=== PATIENT | female | born 1955 | race Caucasian/White ===

== ENCOUNTER 2018-05-01 16:59 | Outpatient (REF) | payer BC, SELFPAY ==
[2018-05-01 20:44] LABS: ALT 25 U/L (12-78); AST 21 U/L (15-37); Albumin 3.7 g/dL (3.4-5.0); Alkaline Phosphatase 90 U/L (46-116); Bilirubin, Direct 0.12 mg/dL (0.00-0.20); Bilirubin, Total 0.5 mg/dL (0.2-1.0)
[2018-05-01 22:25] LABS: Cholesterol 201 mg/dL (50-200); HDL Cholesterol 50 mg/dL (40-60); LDL CHOLESTEROL 134 mg/dL (<100); Triglyceride 78 mg/dL (30-150)
== END 2018-05-01 17:19 ==
LOC: NCHCN 16:59
PROVIDERS: PCP Nurse Practitioner Family; Visit Provider Nurse Practitioner Family
DX: E78.5 Hyperlipidemia, unspecified (principal); Z95.1 Presence of aortocoronary bypass graft; I25.10 Atherosclerotic heart disease of native coronary artery without angina pectoris; E66.9 Obesity, unspecified; R32 Unspecified urinary incontinence; G89.4 Chronic pain syndrome; M79.7 Fibromyalgia; F32.9 Major depressive disorder, single episode, unspecified
CPT/HCPCS: 80061; 80076; 83721; 87086

== ENCOUNTER 2018-05-16 15:24 | Outpatient (REF) | payer BC, SELFPAY ==
[2018-05-16 22:13] LABS: BUN 20 mg/dL (7-18); CREATININE 0.87 mg/dL (0.55-1.02)
== END 2018-05-16 15:44 ==
LOC: NCHCN 15:24
PROVIDERS: PCP Nurse Practitioner Family; Visit Provider Nurse Practitioner Family
DX: Z01.812 Encounter for preprocedural laboratory examination (principal); R69 Illness, unspecified
CPT/HCPCS: 84520; 82565

== ENCOUNTER 2018-08-01 10:53 | Outpatient (REF) | payer BC, SELFPAY ==
[2018-08-01 22:40] LABS: Cholesterol 176 mg/dL (50-200); HDL Cholesterol 49 mg/dL (40-60); LDL CHOLESTEROL 106 mg/dL (<100); Triglyceride 59 mg/dL (30-150)
== END 2018-08-01 11:13 ==
LOC: LBN 10:53
PROVIDERS: PCP Nurse Practitioner Family; Visit Provider Internal Medicine Cardiovascular Disease
DX: E78.5 Hyperlipidemia, unspecified (principal)
CPT/HCPCS: 80061; 83721

== ENCOUNTER 2020-11-19 17:40 | Outpatient (REF) | payer MEDICARE, BC, SELFPAY ==
--- OUTSIDE RECORDS SUMMARY | 2020-11-19 17:52 | XMS_ITS ---
:1955 Author Care Team Providers Name Role Phone LISETTE ARMIDA LUONG Primary Care Provider [phone] CRISTHIAN SRIVASTAVA MD Detention Sergeant [phone] [facility] OTHER [phone] Allergies Code Code System Name Reaction Severity Status Onset 036087 RxNorm Armodafinil ? ? Active ? DARVOCET-N ? ? Active ? 3640 RxNorm Doxycycline ? ? Active ? 09535 RxNorm Modafinil ? ? Active ? 2430 RxNorm Reglan ? ? Active ? Sulfa Respiratory ? Active ? (Sulfonamide Distress Antibiotics) 583791 RxNorm Xyrem ? ? Active ? Medications Name Status Start Date Stop Date ? ? aspirin 81 mg tablet,delayed release Active ? Not available Take 1 tablet every day by oral route. atorvastatin 20 mg tablet Active ? Not av ailable Take 1 tablet every day by oral route. Cymbalta 60 mg capsule,delayed release Completed ? 09/14/2018 Take 1 capsule every day by oral route. Fioricet with Codeine 50 mg-325 mg-40 mg-30 mg capsule Active 02/27/2018 Not available Take 1 capsule every 4 hours by oral route as needed. Fluticasone Propionate (Nasal) 50 mcg/DOSE inhaler Completed 11/19/2015 01/26/2017 Osborne 1 spray by intranasal route at bedtime for 60 days. Lyrica 100 mg capsule Active ? Not availa ble Take 1 capsule 3 times a day by oral route. Lyrica 50 mg capsule Completed ? 09/14/2018 1 tab daily meclizine 25 mg tablet Completed ? 8 TAKE 1 -2TABLET (25 MG) BY ORAL Q8H NEEDED methylphenidate 10 mg tablet Active ? Not available TAKE 1-2 tablets twice a day PRN MS Contin Active ? Not available 15mg Q6:30am; 1 tab Q noon; 2 Tab Qhs omeprazole 20 mg capsule,delayed release Active ? Not available Take 1 capsule every day by oral route. pravastatin 40 mg tablet Completed ? 018 Take 1 tablet every day by oral route. pravastatin 80 mg tablet Completed 10/12/2017 018 Take 1 tablet every day by oral route. Strattera 40 mg capsule Active ? Not avai lable Take 1 capsule every day by oral route. Topamax 50 mg tablet Active ? Not availab le TAKE 1TABLET BY ORAL ROUTE Qam, 1 tab Qpm Valtrex 500 mg tablet Active ? Not availa ble Take 1 tablet every day by oral route. vitamin B complex Active ? Not available 1 tab daily Vitamin D3 100 mcg (4,000 unit) capsule Active ? Not available Take 1 capsule every day by oral route. Wellbutrin XL 300 mg 24 hr tablet, extended release Completed ? 09/14/2018 Take 1 tablet every day by oral route. Zocor 40 mg tablet Completed ? 02/26/2018 Take 1 tablet every day by oral route in the evening. Zoloft Active ? Not available 75mg once a day Problems Name Status Onset Date Source ? Obstructive Sleep Apnea Syndrome Active 07/25/2008 History Triple Vessel Disease of the Heart Active 08/14/2015 ? Atypical Chest Pain Unknown 04/20/2017 ? Atypical Chest Pain Unknown 04/20/2017 ? History of Coronary Artery Bypass Active 05/15/2017 ? [place] Methicillin Resistant Staphylococcus Active ? ? Aureus Infection Genital Herpes Simplex Active ? ? Vitamin D Deficiency Active ? ? Hyperlipidemia Active ? ? Hypersomnia Active ? History Chronic Pain Active ? History Migraine Active ? ? Cataplexy and Narcolepsy Active ? 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 History Nasal Congestion Active ? History Osteoarthritis Active ? ? Low Back Pain Active ? ? Fibromyalgia Active ? ? Peripheral Neuritis Active ? ? Fracture of Bone Active ? ? Methicillin Resistant Staphylococcus Active ? History Aureus Carrier History of Depression Active ? ? Procedures Date Name Performed by ? 08/14/1992 Tubal Ligation Information not avai lable 09/14/2018 Polysomnogram Information not avai lable Results Lab Results None recorded. Past Encounters 06/15/2020 Hypersomnia Danitza Galvan NP: [address], [place] [address], Ph. 05/29/2019 Cataplexy and Narcolepsy Danitza Galvan NP: [address] [place] [address], Ph. Social History Tobacco Smoking Status Former Smoker Notes: 13, 1 p ack per week quit 1983 Vaccine List None recorded. Plan of Care Reminders Provider Appointments None ? ? recorded. Lab None ? ? recorded. Referral None ? ? recorded. Procedures None ? ? recorded. Surgeries None ? ? recorded. Imaging None ? ? recorded. Vitals 06/15/2020 12:30PM Office 30 Height Weight BMI Blood Pressure 168.91 cm 73.3 kg 25.7 kg/m2 130/59 mm[Hg] 05/29/2019 03:00PM Office 30 Height Weight BMI Blood Pressure 168.91 cm 72.57 kg 25.4 kg/m2 121/53 mm[Hg] 09/14/2018 12:30PM Office 30 Height Weight BMI Blood Pressure 168.91 cm 75.93 kg 26.6 kg/m2 140/62 mm[Hg] 02/26/2018 03:30PM Office 30 Height Weight BMI Blood Pressure 168.91 cm 81.33 kg 28.5 kg/m2 102/60 mm[Hg] 08/02/2017 Blood Pressure 124/90 mm[Hg] 01/27/2017 Height Weight 149.86 cm 87.12 kg 01/27/2017 Blood Pressure 118/60 mm[Hg] 09/13/2016 Height Weight 149.86 cm 89.1 kg 09/13/2016 Blood Pressure 110/60 mm[Hg] 05/03/2016 Blood Pressure 134/66 mm[Hg] 05/03/2016 Height Weight 149.86 cm 88 kg 11/19/2015 Height Weight 149.86 cm 94.35 kg 11/19/2015 Blood Pressure 120/78 mm[Hg] 04/14/2015 Height Weight 149.86 cm 94.35 kg 04/14/2015 Blood Pressure 106/62 mm[Hg] 09/30/2014 Blood Pressure 128/68 mm[Hg] 09/30/2014 Height Weight 149.86 cm 90.72 kg
[2020-11-19 20:48] LABS: Calculated LDL 35 mg/dL (<100); Cholesterol 103 mg/dL (<200); Glucose 88 mg/dL (74-106); HDL Cholesterol 57 mg/dL (40-60); Triglyceride 56 mg/dL (<150)
== END 2020-11-19 17:41 | disposition home or self-care (01) ==
LOC: NCHCN 17:40
PROVIDERS: PCP Nurse Practitioner Family; Visit Provider Nurse Practitioner Family
DX: E78.5 Hyperlipidemia, unspecified (principal); Z13.1 Encounter for screening for diabetes mellitus
CPT/HCPCS: 80061; 82947

== ENCOUNTER 2021-06-28 18:20 | Outpatient (REF) | payer MEDICARE, BC, SELFPAY ==
[2021-06-28 21:17] LABS: HCT 37.8 % (36.0-46.0); HGB 12.2 g/dL (11.2-15.7); MCH 29.3 pg (27.0-33.0); MCHC 32.3 % (32.0-36.0); MCV 90.9 fL (80-95); MPV 11.5 fL (8.0-11.0); Platelet Count 213 10^3/uL (130-400); RBC 4.16 10^6/uL (3.93-5.22); RDW 12.7 % (11.7-14.6); RDW-SD 41.8 fL; WBC 6.26 10^3/uL (4.4-10.8)
[2021-06-28 22:10] LABS: ALT 24 U/L (14-59); AST 24 U/L (15-37); Albumin 3.6 g/dL (3.4-5.0); Alkaline Phosphatase 75 U/L (46-116); Anion Gap 11.3 mmol/L (3-11); BUN 11 mg/dL (7-18); Bilirubin, Total 0.4 mg/dL (0.2-1.0); CO2 23.7 mmol/L (21.0-32.0); CREATININE 0.8 mg/dL (0.55-1.02); Calcium 8.4 mg/dL (8.5-10.1); Chloride 106 mmol/L (98-107); Glucose 133 mg/dL (74-106); Potassium 3.9 mmol/L (3.5-5.1); Sodium 141 mmol/L (136-145); Total Protein 6.4 g/dL (6.4-8.2); Vitamin B12 973 pg/mL (193-986)
== END 2021-06-28 18:21 | disposition home or self-care (01) ==
LOC: NCHCN 18:20
PROVIDERS: PCP Nurse Practitioner Family; Visit Provider Nurse Practitioner Family
DX: R53.83 Other fatigue (principal); F32.1 Major depressive disorder, single episode, moderate; G89.4 Chronic pain syndrome
CPT/HCPCS: 80053; 85027; 82607

== ENCOUNTER 2022-04-13 21:46 | Outpatient (REF) | payer MEDICARE, BC, SELFPAY ==
[2022-04-13 21:16] LABS: Absolute Basophil Count 0.07 10^3/uL (0.0-0.2); Absolute Lymphocyte Count 0.98 10^3/uL (1.2-3.4); Absolute Monocyte Count 0.33 10^3/uL (0.1-0.8); Absolute Neutrophil Count 3.52 10^3/uL (1.2-6.7); Basophils % 1.4; Eosinophils % 3.9; HCT 38.6 % (36.0-46.0); HGB 12.6 g/dL (11.2-15.7); Lymphocytes % 19.2; MCHC 32.6 % (32.0-36.0); MCV 89 fL (80-95); MPV 12.5 fL (8.0-11.0); Monocytes % 6.5; Platelet Count 196 10^3/uL (130-400); RBC 4.34 10^6/uL (3.93-5.22); RDW 13.2 % (11.7-14.6); RDW-SD 43.8 fL
[2022-04-13 21:37] LABS: TSH 0.67 uIU/mL (0.36-3.74)
== END 2022-04-13 21:47 | disposition home or self-care (01) ==
LOC: NCHCN 21:46
PROVIDERS: PCP Nurse Practitioner Family; Visit Provider Family Medicine
DX: R53.83 Other fatigue (principal); E55.9 Vitamin D deficiency, unspecified
CPT/HCPCS: 82306; 84443; 85025

== ENCOUNTER 2022-06-20 18:01 | Outpatient (REF) | payer MEDICARE, BC, SELFPAY ==
[2022-06-22 11:15] LABS: Lyme Ab w Rflx to Lyme Confirm Negative (Negative)
[2022-06-24 00:30] LABS: Anaplasma phagocytophilum Negative (Negative); B. miyamotoi PCR Negative (Negative); Babesia divergens/MO-1 Negative (Negative); Babesia duncani Negative (Negative); Babesia microti Negative (Negative); Ehrlichia chaffeensis Negative (Negative); Ehrlichia ewingii/canis Negative (Negative); Ehrlichia muris eauclairensis Negative (Negative)
== END 2022-06-20 18:02 | disposition home or self-care (01) ==
LOC: NCHCN 18:01
PROVIDERS: PCP Nurse Practitioner Family; Visit Provider Nurse Practitioner Family
DX: G89.4 Chronic pain syndrome (principal); R53.83 Other fatigue; M54.50 Low back pain, unspecified; F32.1 Major depressive disorder, single episode, moderate
CPT/HCPCS: 87798; 86618

== ENCOUNTER 2022-08-25 12:00 | Outpatient (REF) | payer MEDICARE, BC, SELFPAY ==
[2022-08-25 15:13] LABS: Abs Immature Grans 0.01 10^3/uL (0.0-0.06); Absolute Basophil Count 0.07 10^3/uL (0.0-0.2); Absolute Eosinophil Count 0.18 10^3/uL (0.0-0.7); Absolute Monocyte Count 0.28 10^3/uL (0.1-0.8); Absolute Neutrophil Count 2.99 10^3/uL (1.2-6.7); Basophils % 1.5; Eosinophils % 3.8; HCT 38.2 % (36.0-46.0); HGB 12.6 g/dL (11.2-15.7); Immature Grans % 0.2; Lymphocytes % 25.4; MCV 88 fL (80-95); MPV 11.7 fL (8.0-11.0); Monocytes % 5.9; Neutrophils % 63.2; Platelet Count 195 10^3/uL (130-400); RBC 4.34 10^6/uL (3.93-5.22); RDW 12.7 % (11.7-14.6); RDW-SD 41.8 fL; WBC 4.73 10^3/uL (4.4-10.8)
[2022-08-25 15:58] LABS: Calculated LDL 105 mg/dL (<100); Cholesterol 177 mg/dL (<200); HDL Cholesterol 59 mg/dL (40-60); Triglyceride 66 mg/dL (<150)
== END 2022-08-25 12:01 | disposition home or self-care (01) ==
LOC: NCHCN 12:00
PROVIDERS: PCP Nurse Practitioner Family; Visit Provider Family Medicine
DX: E78.5 Hyperlipidemia, unspecified (principal); H11.32 Conjunctival hemorrhage, left eye; R53.83 Other fatigue
CPT/HCPCS: 80061; 85025

== ENCOUNTER 2023-05-25 16:17 | Outpatient (REF) | payer MEDICARE, BC, SELFPAY ==
[2023-05-25 21:20] LABS: Abs Immature Grans 0.01 10^3/uL (0.0-0.06); Absolute Basophil Count 0.07 10^3/uL (0.0-0.2); Absolute Lymphocyte Count 1.15 10^3/uL (1.2-3.4); Absolute Monocyte Count 0.32 10^3/uL (0.1-0.8); Absolute Neutrophil Count 2.98 10^3/uL (1.2-6.7); Basophils % 1.4; Eosinophils % 6.2; HCT 37.2 % (36.0-46.0); HGB 12.4 g/dL (11.2-15.7); Immature Grans % 0.2; Lymphocytes % 23.8; MCH 29.5 pg (27.0-33.0); MCHC 33.3 % (32.0-36.0); MCV 88 fL (80-95); Monocytes % 6.6; Neutrophils % 61.8; Platelet Count 190 10^3/uL (130-400); RBC 4.21 10^6/uL (3.93-5.22); RDW 13.1 % (11.7-14.6); RDW-SD 42.4 fL; WBC 4.83 10^3/uL (4.4-10.8)
[2023-05-25 21:38] LABS: Anion Gap 7.1 mmol/L (3-11); BUN 13 mg/dL (7-18); CO2 24.9 mmol/L (21.0-32.0); CREATININE 0.8 mg/dL (0.55-1.02); Calcium 8.9 mg/dL (8.5-10.1); Chloride 106 mmol/L (98-107); Estimated GFR 79.71 (mL/min/1.73m2); FREE T4 1.15 ng/dL (0.76-1.46); Glucose 96 mg/dL (74-106); Potassium 3.8 mmol/L (3.5-5.1); Sodium 138 mmol/L (136-145); TSH 0.95 uIU/mL (0.36-3.74)
[2023-05-25 22:20] LABS: Vitamin B12 240 pg/mL (193-986)
== END 2023-05-25 16:18 | disposition home or self-care (01) ==
LOC: LBN 16:17
PROVIDERS: PCP Nurse Practitioner Family; Visit Provider Nurse Practitioner Family
DX: F41.1 Generalized anxiety disorder (principal); F34.1 Dysthymic disorder
CPT/HCPCS: 80048; 82607; 84439; 84443; 85025; 86140

== ENCOUNTER 2023-09-11 18:26 | Outpatient (REF) | payer MEDICARE, BC, SELFPAY ==
[2023-09-11 22:21] LABS: BUN 12 mg/dL (7-18); CREATININE 0.8 mg/dL (0.55-1.02); Estimated GFR 79.22 (mL/min/1.73m2)
== END 2023-09-11 18:27 | disposition home or self-care (01) ==
LOC: NCHCN 18:26
PROVIDERS: PCP Nurse Practitioner Family; Visit Provider Nurse Practitioner Family
DX: R63.4 Abnormal weight loss (principal)
CPT/HCPCS: 84520; 82565

== ENCOUNTER 2024-02-26 18:07 | Outpatient (REF) | payer MEDICARE, BC, SELFPAY ==
[2024-02-26 21:33] LABS: Abs Immature Grans 0.01 10^3/uL (0.0-0.06); Absolute Basophil Count 0.07 10^3/uL (0.0-0.2); Absolute Eosinophil Count 0.21 10^3/uL (0.0-0.7); Absolute Lymphocyte Count 1.06 10^3/uL (1.2-3.4); Absolute Monocyte Count 0.28 10^3/uL (0.1-0.8); Absolute Neutrophil Count 2.98 10^3/uL (1.2-6.7); Basophils % 1.5 %; Eosinophils % 4.6 %; HCT 38.9 % (36.0-46.0); HGB 12.9 g/dL (11.2-15.7); Immature Grans % 0.2 %; MCH 29.3 pg (27.0-33.0); MCHC 33.2 % (32.0-36.0); MCV 88 fL (80-95); MPV 12.4 fL (8.0-11.0); Monocytes % 6.1 %; Neutrophils % 64.6 %; Platelet Count 175 10^3/uL (130-400); RBC 4.41 10^6/uL (3.93-5.22); RDW-SD 41.8 fL; WBC 4.61 10^3/uL (4.4-10.8)
[2024-02-26 21:54] LABS: ALT 25 U/L (14-59); AST 22 U/L (15-37); Albumin 4.2 g/dL (3.4-5.0); Alkaline Phosphatase 87 U/L (46-116); Anion Gap 7.2 mmol/L (3-11); BUN 16 mg/dL (7-18); Bilirubin, Total 0.51 mg/dL (0.2-1.0); CO2 27.8 mmol/L (21.0-32.0); CREATININE 0.8 mg/dL (0.55-1.02); Calcium 9.2 mg/dL (8.5-10.1); Chloride 105 mmol/L (98-107); Estimated GFR 79.22 (mL/min/1.73m2); Glucose 101 mg/dL (74-106); Potassium 4.3 mmol/L (3.5-5.1); Sodium 140 mmol/L (136-145); TSH 0.99 uIU/Ml (0.36-3.74); Total Protein 7.4 g/dL (6.4-8.2)
== END 2024-02-26 18:08 | disposition home or self-care (01) ==
LOC: NCHCN 18:07
PROVIDERS: PCP Nurse Practitioner Family; Visit Provider Nurse Practitioner Family
DX: R63.4 Abnormal weight loss (principal)
CPT/HCPCS: 80053; 84443; 85025

== ENCOUNTER 2024-08-26 15:44 | Outpatient (REF) | payer MEDICARE, BC, SELFPAY ==
[2024-08-26 20:59] LABS: Absolute Basophil Count 0.07 10^3/uL (0.0-0.2); Absolute Lymphocyte Count 1.13 10^3/uL (1.2-3.4); Absolute Monocyte Count 0.34 10^3/uL (0.1-0.8); Basophils % 1.3 %; Eosinophils % 5.5 %; HCT 41.6 % (36.0-46.0); HGB 13.5 g/dL (11.2-15.7); Lymphocytes % 20.8 %; MCHC 32.5 % (32.0-36.0); MCV 89 fL (80-95); MPV 11.5 fL (8.0-11.0); Monocytes % 6.3 %; Neutrophils % 66.1 %; Platelet Count 214 10^3/uL (130-400); RBC 4.66 10^6/uL (3.93-5.22); RDW 13.2 % (11.7-14.6); RDW-SD 43.5 fL; WBC 5.44 10^3/uL (4.4-10.8)
[2024-08-26 21:20] LABS: ALT 18 U/L (14-59); AST 28 U/L (15-37); Albumin 4.2 g/dL (3.4-5.0); Alkaline Phosphatase 81 U/L (46-116); Anion Gap 7.7 mmol/L (3-11); BUN 18 mg/dL (7-18); Bilirubin, Total 0.37 mg/dL (0.2-1.0); CO2 27.3 mmol/L (21.0-32.0); CREATININE 0.8 mg/dL (0.55-1.02); Calcium 9.3 mg/dL (8.5-10.1); Chloride 107 mmol/L (98-107); Estimated GFR 78.72 (mL/min/1.73m2); Glucose 99 mg/dL (74-106); Sodium 142 mmol/L (136-145); TSH 1.33 uIU/mL (0.36-3.74); Total Protein 7.6 g/dL (6.4-8.2)
== END 2024-08-26 15:45 | disposition home or self-care (01) ==
LOC: NCHCN 15:44
PROVIDERS: PCP Nurse Practitioner Family; Visit Provider Nurse Practitioner Family
DX: R63.4 Abnormal weight loss (principal)
CPT/HCPCS: 80053; 84443; 85025

== ENCOUNTER 2024-11-12 17:12 | Outpatient (REF) | payer MEDICARE, BC, SELFPAY ==
--- NOTE | 2024-11-12 13:30 | PAPFT_PTH ---
PATIENT: Renetta Kruse LOC: [facility]#:[id number] AGE/SX: 69/F ROOM: RE11/12/[address]: Leann Samuel : 1955 BED: DIS: 11/12/2024 SPEC #: [id number] RECD: 11/13/24 13:15 STATUS: RADHA REMatias #: [id number] LORENE: 11/12/24 13:[address]: Leann Lou DEPT: [facility] Cytology RECD BY: Payton Soriano ENTERED: 11/13/24 13:16 SP TYPE: PAPFT OTHR DR: Cherie Zamora Tissues: 1 - CX/ENDOCX FOR PAP SMEARS Procedures: PAP THIN PREP/[facility] Screening HPV DNA PROBE Comments: [id number] (HPV 15 & 18/45)
[2024-11-12 22:30] LABS: BUN 13 mg/dL (7-18); CREATININE 0.7 mg/dL (0.55-1.02); Estimated GFR 92.41 (mL/min/1.73m2)
== END 2024-11-12 17:13 | disposition home or self-care (01) ==
LOC: NCHCN 17:12
PROVIDERS: PCP Nurse Practitioner Family; Visit Provider Nurse Practitioner Family
DX: Z11.51 Encounter for screening for human papillomavirus (HPV) (principal); Z01.419 Encounter for gynecological examination (general) (routine) without abnormal findings; R19.09 Other intra-abdominal and pelvic swelling, mass and lump
CPT/HCPCS: 84520; 88142; 82565; 87624